=== PATIENT | female | born 1950 | race Caucasian/White ===

== ENCOUNTER → 2021-06-04 | Outpatient (CLI) | payer OTHER ==
[~2021-06-04] MED LIST: APAP650 PO; CLOPIDOGREL75 MG PO; COREG25 MG PO; CRESTOR40 MG PO; ENTRESTO 97 MG1 EACH PO; LOW DOSE ASPIRI81 M1 PO; METFORMIN HCL1000 M1 PO; MOVE FREE JOIN1 EACH PO; TORSEMIDE20 MG PO; TURMERIC 500 M1 EACH PO; VITAMIN B-121000 MC2 SUBLING; VITAMIN E1000 UNIT PO
[2021-06-04 12:14] LABS: URINE BILIRUBIN NEGATIVE (Negative); URINE BLOOD NEGATIVE (Negative); URINE CLARITY CLEAR; URINE COLOR YELLOW; URINE GLUCOSE-RANDOM* NEGATIVE (Negative); URINE KETONES NEGATIVE (Negative); URINE LEUKOCYTES-REFLEX TRACE (Negative); URINE NITRITE-REFLEX NEGATIVE (Negative); URINE PROTEIN (DIPSTICK) TRACE (Negative); URINE UROBILINOGEN 0.2 E.U./dl (0.2-1.0)
[2021-06-04 12:16] LABS: HEMOGLOBIN 11.4 gm/dL (12.0-15.0); MCH 29.7 pg (26.0-34.0); MCHC 32.4 g/dL (28.0-37.0); MCV 91.6 fL (80.0-100.0); RBC 3.82 mil/uL (4.20-5.00); RDW 15.8 % (10.5-14.5); WBC 8.3 thou/uL (4.0-11.0)
[2021-06-04 12:24] LABS: CALCIUM 9.3 mg/dL (8.5-10.1); CREATININE 1.2 mg/dL (0.6-1.0); POTASSIUM 3.9 mmol/L (3.5-5.1)
[2021-06-04 12:25] LABS: INR 0.98; PROTIME 10.7 Seconds (10.5-12.1)
--- NOTE | 2021-06-04 14:20 | EKG ---
[place] [address] [facility] [place] [address] ELECTROCARDIOGRAM REPORT Name: JOELLE ALVARADO Room #: REG KUMAR Joel#: [id number] Admission: 06/04/21 Attend Phys: Ryan Zaidi MD Discharge: Date of : 50 Report #: [id number] [facility] Test Date: 2021-06-04 Test Time: 11:08:11 Pat Name: JOELLE ALVARADO Department: Room: Gender: F Maintenance Mechanic: Leah MILTON : 1950 Requested By: Ryan Zaidi Order Number: [id number] : Martínez Encarnacion Measurements Intervals [place] Rate: 81 P: 46 MA: 219 QRS: -35 QRSD: 154 T: 126 QT: 403 QTc: 468 Interpretive Statements Sinus rhythm Multiple ventricular premature complexes Borderline prolonged MA interval Left bundle branch block No previous ECG available for comparison Electronically Signed On 06-04-2021 14:20:20 CDT by Martínez Encarnacion [email or web address] <ELECTRONICALLY SIGNED> By: Martínez Encarnacion MD, MERGED WITH [facility] 06/04/21 1420 1108 1108 Martínez Encarnacion MD, FACC /EPI
[2021-06-05 05:07] LABS: GLYCOHEMOGLOBIN (HGB A1C) 5.9 % (4.8-5.6)
== END ==
LOC: PAC 10:36
PROVIDERS: ATTEND Orthopaedic Surgery
DX: I21.9 Acute myocardial infarction, unspecified (principal); M17.11 Unilateral primary osteoarthritis, right knee; E11.9 Type 2 diabetes mellitus without complications; I10 Essential (primary) hypertension

== ENCOUNTER 2021-06-11 09:53 | Observation (INO) | payer OTHER ==
[~2021-06-11] VITALS: Ht 152.4 cm; Wt 90.7 kg
[2021-06-11 12:16] VITALS: BP 141/64
[2021-06-11 19:20] VITALS: BP 137/69
[2021-06-11 21:12] VITALS: BP 131/64
--- NOTE | 2021-06-12 00:55 | NUR ---
PT ARRIVED FROM SX @1900. A&OX4 ADMISSION DONE AND PT ORIENTED TO THE UNIT. GRISELDA DRESSING, POLAR PACK IN PLACE. IV INTACT. FLUIDS AND ABX STARTED. FALL PREC IN PLACE. PT DENIES N/V. WILL CONT TO MONITOR TILL EOS.
[2021-06-12 04:40] VITALS: BP 111/55
[2021-06-12 07:14] VITALS: BP 135/65
--- NOTE | 2021-06-12 08:40 | O ---
[facility] [place] [address] OPERATIVE REPORT Name: JOELLE ALVARADO Room #: 448-P [facility] Olu Joel#: [id number] Admission: 06/11/21 Attend Phys: Ryan Zaidi MD Discharge: Date of : 50 Report #: [id number] THIS REPORT FOR: cc: EZEQUIEL CHATMAN Physician not on staff Ryan Zaidi MD ~ DATE OF SERVICE: 06/11/2021 PREOPERATIVE DIAGNOSIS: Right knee osteoarthritis. POSTOPERATIVE DIAGNOSIS: Right knee osteoarthritis. PROCEDURE: Right total knee arthroplasty using Navio robotic assistance. SURGEON: Ryan Zaidi MD. ORTHOPEDIC MECHANIC: Kiera Hughes PA-C. INDICATION FOR ORTHOPEDIC MECHANIC: Throughout the case, extensive retraction, manipulation of the knee was required. This was afforded to me by my assistant operations manager. ANESTHESIA: LMA with adductor canal block. IMPLANTS: A Victoria and Nephew size 5, Journey II BCS cobalt chrome femur, size 4 tibia, size 13 constrained polyethylene and size 32 patella. TOURNIQUET TIME: 54 minutes. ESTIMATED BLOOD LOSS: 25 mL COMPLICATIONS: None. SPECIMENS: None. CONDITION UPON LEAVING THE OR: Stable. INDICATIONS FOR PROCEDURE: The patient is a 71-year-old female with severe right knee osteoarthritis. She had failed conservative measures for this and after discussion with her, she elected for right total knee arthroplasty. DESCRIPTION OF PROCEDURE: Risks, benefits, alternatives, complications were discussed in detail with the patient including but not limited to risk of anesthesia, risk of damage to nerves, arteries, blood vessels, risk for infection, bleeding, risk for continued knee pain and need for reoperation. Informed consent was obtained from the patient. Right knee was appropriately marked in the preoperative holding area. IV Ancef was given for preoperative [address] [address] OPERATIVE REPORT Name: JOELLE ALVARADO Room #: 448-P [facility] Olu Joel#: [id number] Admission: 06/11/21 Attend Phys: Ryan Zaidi MD Discharge: Date of : 50 Report #: [id number] antibiotics. She was brought to the operating room and placed in supine position on the operating table. LMA anesthesia was induced without complication. Tourniquet was placed on the right thigh. Right lower extremity was prepped and draped in normal sterile fashion. Timeout was performed properly identifying the patient and procedure as well as the instrumentation and implants. All in the operating room in agreement. Right lower extremity was exsanguinated, tourniquet was inflated. Tourniquet time was 54 minutes. Standard midline approach to the knee was made with 10 blade through the skin. Dissection was taken down sharply to the fascia and deep flaps were developed medially and laterally. Fresh 10 blade was used to make a medial parapatellar arthrotomy and the knee was inspected. There was severe tricompartmental osteoarthritis. ACL and PCL were removed sharply. Reference pins were placed in the femur and the tibia and the knee was digitally mapped using the Animail robotic system. Intraoperative plan was made. We sized the size 5 femur, the size 4 tibia and a 10 spacer. After acceptance of the intraoperative plan, the distal femoral cut was made with Navio bur. Distal femoral cutting block was pinned in place and chamfer cuts were made. Attention was turned to the tibia. Remainder of the menisci removed with Bovie cautery. Tibial resection guide was pinned in place using Navio for placement and tibial resection was made. Flexion and extension gaps were checked and found to be tight medially in extension. A medial osteophyte was removed from the tibia and this balanced the knee well. Tibia sized, found to be a size 4. Size 4 tibial trial was placed, pinned and punch. A size 5 femoral trial was placed and box cut was made. This was then trialed with a size 10 up to a size 13 polyethylene. Size 13 polyethylene demonstrated 1-2 mm laxity medially throughout range of motion of the knee. She did demonstrate up to 3 mm laterally in deep flexion, it was felt we can make up for this with a constrained implant, 9 mm of bone was resected from the posterior surface of the patella and a size 32 patellar trial button was placed. Knee was taken through range of motion, found to be stable, found to have good patellar tracking. Trial components were removed. Bone ends were thoroughly irrigated with normal saline. Final size 4 tibia, size 5 Journey II BCS cobalt chrome femur and a size 32 patella were cemented in place using standard cementation techniques. While the cement cured, a periarticular injection consisting of morphine, ropivacaine, epinephrine, Toradol was placed around the knee joint capsule. After the cement cured, tourniquet was deflated. Hemostasis was obtained with Bovie cautery. A final size 13 constrained polyethylene was placed. A gram of vancomycin was placed deep in the joint. Fascia was closed with 0 Vicryl. Skin was closed with 2-0 Vicryl, skin staple and a GRISELDA dressing was applied. The patient tolerated this procedure well and went to recovery room under care of anesthesia postoperatively. <ELECTRONICALLY SIGNED> By: Ryan Zaidi MD 06/12/21 0840 1552 1722 Ryan Zaidi MD /nt
--- NOTE | 2021-06-12 09:45 | NUR ---
71 year old female admitted for an elective Right Knee arthroplasty with NAVIO robotic assist. Per assessment the patient pre and post operatively remains A&O x4. The patient currently lives independently with spouse Jesus Owen at [phone]. The patient also lists daughter Rosette at [phone] as contact. CM will monitor for therapy recommendations as well as agreement of discharge plan and needs per orthopedics. Cm visited with Fatimah; she was getting ready to work with therapy. She is a & o x 4, pleasant and able to make her needs known. Lives with her spouse Jesus in a ground floor apartment. No stairs. No hh or rehab in the past. Has Physical [facility] set up for [facility] by Harvinder mascorro. She will need FWW for dc today and provider plus will deliver the walker today.
[2021-06-12 11:02] VITALS: BP 135/65
--- NOTE | 2021-06-12 12:01 | NUR ---
PT ASSESSED AT START OF SHIFT. DOING WELL. AMBULATING W/ WALKER W/ LITTLE PAIN. INSTRUCTIONS GIVEN PER THERAPIST AND NURSING. WALKER DELIVERED AT THIS TIME. PT DISCHARGING W/ ALL BELONGINGS.
== END 2021-06-12 12:27 | disposition home or self-care (01) ==
LOC: OR → TBA 09:53 → OR 09:53 → TBA 09:58 → PRE 10:59 → OR 11:02 → EDSTATUS 11:49 → OR 12:27 → 4S 19:03
PROVIDERS: ADMIT Orthopaedic Surgery; ATTEND Orthopaedic Surgery
DX: M17.11 Unilateral primary osteoarthritis, right knee (principal); Z20.822 Contact with and (suspected) exposure to COVID-19; E11.9 Type 2 diabetes mellitus without complications; I10 Essential (primary) hypertension; I25.10 Atherosclerotic heart disease of native coronary artery without angina pectoris; E78.5 Hyperlipidemia, unspecified; Z79.899 Other long term (current) drug therapy
CPT/HCPCS: 50010; 50101; 50415; 50954; 51130; 51225; 51320; 51412; 52001; 53000; 53078; 56527; 56528; 57095; 57103; 57110; 57127; 57180; 58239; 62110; 62900; 64042; 70005

== ENCOUNTER 2021-06-14 18:55 | Emergency (ER) | payer OTHER ==
[~2021-06-14] VITALS: Ht 152.4 cm; Wt 91.6 kg
[2021-06-14] MEDS ORDERED: HYDROCODON-ACE1 EAC7 PO (19:20)
[2021-06-14] MEDS ORDERED: MORPHINE SULFAT15 MG PO (19:23)
[2021-06-14 19:54] LABS: ABSOLUTE NEUTROPHILS 6.6 thou/uL (1.4-8.2); BASOPHILS 0.5 % (0.0-2.0); HEMOGLOBIN 9.4 gm/dL (12.0-15.0); LYMPHOCYTES 15.8 % (24.0-44.0); MCH 30.5 pg (26.0-34.0); MCHC 33.4 g/dL (28.0-37.0); MCV 91.4 fL (80.0-100.0); MONOCYTES 13.9 % (1.0-8.0); PLATELET COUNT 447 thou/uL (150-400); POLYS 68.8 % (36.0-66.0); RBC 3.07 mil/uL (4.20-5.00); RDW 15.8 % (10.5-14.5); WBC 9.6 thou/uL (4.0-11.0)
[2021-06-14 19:58] LABS: CALCIUM 8.7 mg/dL (8.5-10.1); CREATININE 1.2 mg/dL (0.6-1.0); POTASSIUM 4.1 mmol/L (3.5-5.1)
[2021-06-14 21:35] LABS: URINE BILIRUBIN NEGATIVE (Negative); URINE BLOOD 1+ (Negative); URINE CLARITY CLEAR; URINE COLOR YELLOW; URINE GLUCOSE-RANDOM* NEGATIVE (Negative); URINE KETONES NEGATIVE (Negative); URINE LEUKOCYTES-REFLEX NEGATIVE (Negative); URINE NITRITE-REFLEX NEGATIVE (Negative); URINE PROTEIN (DIPSTICK) 1+ (Negative); URINE SPECIFIC GRAVITY 1.025 (1.005-1.035); URINE UROBILINOGEN 0.2 E.U./dl (0.2-1.0)
[2021-06-14 21:51] LABS: CASTS None Seen /LPF (None Seen); SQUAMOUS 4-10 Moderate /LPF (0-3); URINE WBC-REFLEX 0-5 Rare /HPF (0-5)
[2021-06-14 21:52] LABS: BACTERIA-REFLEX None Seen /HPF (None Seen); CRYSTALS None Seen /LPF (None Seen); URINE RBC 3-10 Few /HPF (NONE SEEN)
[2021-06-14 22:32] VITALS: BP 130/59
--- NOTE | 2021-06-15 08:15 | EKG ---
[place] [address] [facility] [place] [address] ELECTROCARDIOGRAM REPORT Name: JOELLE ALVARADO Room #: DEP NEHA Joel#: [id number] Admission: 06/14/21 Attend Phys: Discharge: 06/14/21 Date of : 50 Report #: [id number] [facility] ED Test Date: 2021-06-14 Test Time: 19:57:33 Pat Name: JOELLE ALVARADO Department: Room: Gender: F Drapery Worker: sandra liriano rn : 1950 Requested By: Dejan Alcantar Order Number: [id number] MD: Martínez Encarnacion Measurements Intervals [place] Rate: 86 P: 21 NV: 183 QRS: -29 QRSD: 151 T: 127 QT: 403 QTc: 482 Interpretive Statements Sinus rhythm Left bundle branch block Compared to ECG 06/04/2021 11:08:11 Ventricular premature complex(es) no longer present Electronically Signed On 06-15-2021 8:15:05 [employer] by Martínez Encarnacion [email or web address] <ELECTRONICALLY SIGNED> By: Martínez Encarnacion MD, [facility] 06/15/21814 1957 56 Martínez Encarnacion MD, FACC /EPI
== END 2021-06-14 22:32 | disposition home or self-care (01) ==
LOC: ER 18:55
PROVIDERS: Student in an Organized Health Care Education/Training Program
DX: R53.1 Weakness (principal); Z20.822 Contact with and (suspected) exposure to COVID-19; E11.9 Type 2 diabetes mellitus without complications; I13.0 Hypertensive heart and chronic kidney disease with heart failure and stage 1 through stage 4 chronic kidney disease, or unspecified chronic kidney disease; N18.30 Chronic kidney disease, stage 3 unspecified; I50.9 Heart failure, unspecified; I25.2 Old myocardial infarction; Z90.710 Acquired absence of both cervix and uterus; Z79.82 Long term (current) use of aspirin; Z79.84 Long term (current) use of oral hypoglycemic drugs; Z79.891 Long term (current) use of opiate analgesic; Z79.1 Long term (current) use of non-steroidal anti-inflammatories (NSAID); Z79.899 Other long term (current) drug therapy